=== PATIENT | female | born 1960 ===

== ENCOUNTER → 2021-04-27 | Outpatient (CLI) | payer OTHER ==
[~2021-04-27] VITALS: Ht 167.6 cm; Wt 71.7 kg
[~2021-04-27] MED LIST: CALCIUM500 MG PO; CELEBREX 200 M200 M1 PO; COZAAR 25 MG TA25 M1 PO; FLEXERIL PO; NEURONTIN300 MG PO; RESTORIL15 M1 PO; TRAMADOL 50 MG50 MG PO; TYLENOL EXTRA500 MG PO; VITAMIN D-40010 MCG PO
[2021-04-27 10:06] VITALS: BP 124/89
--- NOTE | 2021-04-28 08:08 | HPC ---
[facility] [place] [address] PAIN MANAGEMENT CONSULTATION Name: BRANDO GALE Room #: REG PAT MishraSteph#: [id number] Admission: 04/27/21 Attend Phys: Aris Fox DO Discharge: Date of : 56 Report #: [id number] THIS REPORT FOR: cc: Ava Weiner,Aris Rivera DO ~ cc: Ava Weiner DO DATE OF SERVICE: 04/27/2021 CHIEF COMPLAINT: Right buttock and groin pain. HISTORY OF PRESENT ILLNESS: As you know, the patient is a very pleasant 60-year-old female, reports acute onset of low back pain, right hip and groin pain, which began 04/08/2021. The patient reports no specific injury or trauma. She states that Celebrex has been somewhat helpful with her symptoms, indicating more of a joint-related issue as it is ineffective at treating neuropathic pain. She has been utilizing Extra Strength Tylenol with some benefit. She has also been trialed on tramadol and Flexeril for this issue, but has noted no significant changes in symptoms with those treatments. She is continuing to participate in physical therapy with physician-directed stretching exercises and treatments. She has had formalized physical therapy in the past and she has reeducated herself on those formalized physical therapy programs and are utilizing them at home. She states the pain is located mainly in the right groin and lateral hip area with intermittent low back symptoms located over what appears to be the sacroiliac joint. The patient indicates pain is exacerbated with standing and walking and tends to improve with sitting and lying down. She has been referred to our service to discuss treatment options for this ongoing pain. She has undergone x-ray imaging that she wants to discuss today. The patient reports her pain for the most part is intermittent. She describes the pain as an aching sensation with sharp sensations upon standing from a seated position. She places current pain score 4-5/10, daily average at 7/10, worst pain has been a 7/10. The patient indicates pain is only present when standing and walking, resolves with sitting and lying down. She has been referred to our service to discuss treatment options for this ongoing pain, unresolved with conservative treatment. The patient has reported an injection of steroid, which was provided recently giving no improvement in symptoms. PAST MEDICAL HISTORY: 1. Hypertension. 2. Chronic colon problems. 3. Degenerative joint disease. 4. Osteoarthritis. PAST SURGICAL HISTORY: 1. Tonsillectomy. [address] [address] PAIN MANAGEMENT CONSULTATION Name: BRANDO GALE Room #: REG [facility] Crista#: [id number] Admission: 04/27/21 Attend Phys: Aris Fox DO Discharge: Date of : 56 Report #: [id number] 2. Shoulder repair. 3. Tubal ligation. 4. Hysterectomy with bladder lift. 5. Total knee arthroplasty. 6. Hammertoe repair. 7. Left total knee arthroplasty. SOCIAL HISTORY: The patient denies tobacco. Denies IV or illicit drug use. Admits to probably 6-7 alcoholic beverages per week. 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 as a nurse and everyday at the [employer]. She is unaccompanied at today's visit. She is not receiving Workmen's Compensation nor is she trying to obtain disability benefits. Not in litigation in regards to pain. She is unaccompanied today. REVIEW OF SYSTEMS: Positive for wearing corrective eyewear, intermittent rectal bleeding, nocturia, insomnia, right groin and right lateral hip pain. All other review of systems negative per 12-point review of systems other than those listed in history of present illness. Pain impact score 45/70, moderate interference of daily activities secondary to pain. ALLERGIES: No known drug allergies. CURRENT MEDICATIONS: Cholecalciferol 100 mcg per day, calcium carbonate 500 mg once a day, temazepam 15 mg p.o. at bedtime, acetaminophen ES 500 mg t.i.d., cyclobenzaprine 10 mg p.r.n., tramadol 50 mg 3 times a day p.r.n., celecoxib 200 mg once a day, losartan 25 mg per day. IMAGING: X-ray lumbar spine shows degenerative disk disease, moderate to severe at L2, L3 and L4. Joint spaces of the hips are well maintained. Mildly decreased femoral head/neck offset anteriorly bilaterally. No fractures associated with the pelvis. PHYSICAL EXAMINATION: VITAL SIGNS: Blood pressure 124/89, pulse 82, respiratory rate 14 and unlabored. The patient 100% on room air. Height 5 feet 6 inches tall, weight 158 pounds, BMI calculated 25.5. GENERAL: Well-developed, well-nourished, well-hydrated 60-year-old female appearing stated age, placing current pain score at about 5/10. HEENT: Normocephalic, atraumatic. Pupils equal, round and responsive to light. Extraocular muscles are intact. Sclerae nonicteric without injection. Cranial nerves 2-12 grossly intact. Speech is fluent. The patient deemed a good historian. She is wearing a mask in compliance with COVID-19 regulations. LUNGS: Clear. No wheeze, rhonchi or rales. [facility] [address] [place] [address] PAIN MANAGEMENT CONSULTATION Name: BRANDO GALE [facility] [id number] Admission: 04/27/21 Attend Phys: Aris Fox DO Discharge: Date of : 56 Report #: [id number] CARDIOVASCULAR: Regular. No appreciable gallop, no rub. ABDOMEN: Soft. EXTREMITIES: Show no clubbing, no cyanosis, no edema. MUSCULOSKELETAL: Lower extremity strength equal and symmetrical 5/5, intact to light touch from L1 through S2 dermatomes. Seated straight leg raising negative. Supine straight leg raising negative. Fabere's test is positive on the right, negative on the left. Thigh thrust maneuver is positive on the right, negative left. Levar's test is positive on the right, negative on the left. Wilner's test is positive on the right, negative on the left. Lumbar provocation testing is met with mild increase in axial back pain. There is palpatory tenderness over the right sacroiliac joint. Flexion and abduction of the right hip causes an increase in overall pain with radiation to the groin. ASSESSMENT: 1. Right hip pain. 2. SI joint dysfunction. 3. Possible lumbar radiculopathy. 4. Chronic intractable pain. PLAN: 1. Based on today's physical exam and the history the patient provided, the description the patient uses in regards to pain as well as location of symptoms, it would appear the main generator of symptoms is related to the right hip. Her pain is resolved with sitting down, but it is exacerbated with standing and walking consistent with right hip pathology. She is localizing hip pain on the lateral aspect of the right hip and radiating towards the groin, once again consistent with intrinsic hip pathology. She does have mild possible radicular symptoms, but the distribution is not consistent with the groin distribution of pain. She does have some SI joint dysfunction, but this is minimal compared to the hip pain described and locations of symptoms. After reviewing the physical exam and the findings of the recent x-ray imaging, we discussed the treatment options to address all potential pain generators. The following was discussed with the patient today. 2. We discussed physical therapy, core strengthening and stretching techniques as a way to assess not only for the right hip pain, but also SI joint dysfunction. We discussed medication management, utilizing nonsteroidal anti-inflammatories such as her Celebrex for her hip pain and adding a neuropathic medication to address any radicular component. We also discussed intraarticular hip injection as a treatment course to address intrinsic hip pathology. We discussed SI joint injection to assist in the right sacroiliac joint pain findings on physical exam today. We also discussed if symptoms appear more of a radiculopathy, to possibly undergo a lumbar epidural injection. We also discussed surgical options with the patient, though at this point until the specific pain generator has been located, I would not recommend surgical evaluation. The patient was agreeable with the plan. She wishes to begin with medication management and consider an intra-articular hip injection if symptoms [address] [address] PAIN MANAGEMENT CONSULTATION Name: BRANDO GALE Room #: REG PAT Tobin#: [id number] Admission: 04/27/21 Attend Phys: Aris Fox DO Discharge: Date of : 56 Report #: [id number] do not improve. 3. We will start the patient on gabapentin 300 mg dose. She will start 1 tab p.o. at bedtime for 3 nights, then 2 tabs p.o. at bedtime for 3 nights. If no improvement in symptoms, no side effects of sleepiness, disorientation, and confusion, then increase to 3 tabs p.o. at bedtime. I gave the patient #90 tablets. I did advise the patient at any time symptoms seem to improve with the medication, stabilize at that dose, no further escalation. If the patient is having side effects to medication, reduce to the dose prior to the side effects and contact our clinic. 4. We will begin the process of any authorization necessary for the patient to undergo a right intraarticular hip injection. We will plan to have the patient back in followup visit at her earliest convenience to undergo that procedure. She wishes to try medication initially, but if this is ineffective, she wants to return to undergo the right intraarticular hip injection proposed today. We will make ourselves available to the patient if she wishes to avail herself of that injection. 5. We wish to thank the referring physician, Dr. Ava Weiner for the referral of the patient to our clinic. We will keep you apprised of response to treatment as we address ongoing right low back and right groin pain. Again, we wish to thank you for the opportunity to see the patient in consultation. <ELECTRONICALLY SIGNED> By: Aris Fox DO 04/28/21 [id number] Aris Fox DO /nt
== END ==
LOC: PAIN 07:51
PROVIDERS: ATTEND Anesthesiology Pain Medicine
DX: G89.29 Other chronic pain (principal); M25.551 Pain in right hip; R10.2 Pelvic and perineal pain; I10 Essential (primary) hypertension; Z96.653 Presence of artificial knee joint, bilateral; Z90.710 Acquired absence of both cervix and uterus